=== PATIENT | male | born 2000 | race African-American/Black ===

== ENCOUNTER 2020-07-08 15:25 | Emergency (ER) | payer MEDICAID ==
[~2020-07-08] VITALS: Ht 175.3 cm; Wt 70.0 kg
--- NOTE | 2020-07-08 17:43 | PHYS DOC ---
General Adult EDM: Chief Complaint: ABDOMINAL PAIN HPI: HPI: Patient is a 19 year old male presents emergency department reporting that he has had urinary pressure with increased frequency and painful urination for the past 3 days. Patient states that he has seen some dried blood in his urine today and this is what prompted him to come to the emergency department. Patient denies any STI concerns or penile discharge, patient states that he has not had unprotected sex. Patient denies any back pain, denies abdominal pains, denies fever chills, rashes of his skin, patient denies any testicular pains. Patient denies any other physical symptoms or physical illnesses. Review of Systems: Review of Systems: 14 body systems of review of systems have been reviewed. See HPI for pertinent positives and negative responses, otherwise all other systems are negative, nonpertinent or noncontributory. Heart Score: Risk Factors: Risk Factors: DM, Current or recent (<one month) smoker, HTN, HLP, family history of CAD, obesity. Risk Scores: Score 0 - 3: 2.5% MACE over next 6 weeks - Discharge Home Score 4 - 6: 20.3% MACE over next 6 weeks - Admit for Clinical Observation Score 7 - 10: 72.7% MACE over next 6 weeks - Early Invasive Strategies Family History: Family History: Patient denies any family history stating his mother and father are healthy. Current Medications: Patient denies being on any prescription medications at home. Allergies: Allergies: Patient denies allergies to medications. Physical Exam: PE: Constitutional: Well developed, well nourished, no acute distress, non-toxic appearance. HENT: Normocephalic, atraumatic, bilateral external ears normal, oropharynx moist, no oral exudates, nose normal. Eyes: PERRLA, EOMI, conjunctiva normal, no discharge. Neck: Normal range of motion, no tenderness, supple, no stridor. Cardiovascular:Heart rate regular rhythm, no murmur Lungs & Thorax: Bilateral breath sounds clear to auscultation Abdomen: Bowel sounds normal, soft, no tenderness, no masses, no pulsatile masses. Skin: Warm, dry, no erythema, no rash. Back: No tenderness, no CVA tenderness. Extremities: No tenderness, no cyanosis, no clubbing, ROM intact, no edema. Neurologic: Alert and oriented X 3, normal motor function, normal sensory fu nction, no focal deficits noted. Psychologic: Affect normal, judgement normal, mood normal. : Circumcised male, no lesions or rashes noted in scrotum or groin area, no hernias appreciated. Current Patient Data: Labs: Laboratory Tests Test 07/08/20 17:45 Urine Collection Type Unknown Urine Color Ruth Ann Urine Clarity Cloudy Urine pH 6.0 Urine Specific Starks 1.020 Urine Protein 30 mg/dL Urine Glucose (UA) Negative mg/dL Urine Ketones (Stick) Trace mg/dL Urine Blood Large Urine Nitrite Negative Urine Bilirubin Negative Urine Urobilinogen Dipstick 1.0 mg/dL Urine Leukocyte Esterase Small Urine RBC Tntc /HPF Urine WBC 5-10 /HPF Urine Squamous Epithelial Cells None /LPF Urine Bacteria Few /HPF Urine Mucus Marked /LPF EKG: EKG: [] Radiology/Procedures: Radiology/Procedures: [] Course & Med Decision Making: Course & Med Decision Making Pertinent Labs and Imaging studies reviewed. (See chart for details) 19-year-old male, vitals stable, presents emergency department with UTI symptoms. Physical exam was unremarkable, a urine was ordered, patient's urine was infected, a GC chlamydia culture was also ordered and pending, discussed findings with patient will start on oral antibiotic for simple cystitis, patient aware that if GC chlamydia results come back positive he will be contacted and appropriate medications will be prescribed at that time. Patient gave verbal understanding of discharge home instructions, prescription instructions, return to ER concerns, patient had no further questions or concerns, patient discharged home without incident. Júnior Disclaimer: Júnior Disclaimer: This electronic medical record was generated, in whole or in part, using a voice recognition dictation system. Departure Departure Impression: Primary Impression: Cystitis Disposition: 01 DC HOME SELF CARE/HOMELESS Condition: IMPROVED Referrals: NO PCP (PCP) Patient Instructions: Urinary Tract Infection Additional Instructions: Please take prescription medicines as directed, return to the emergency department for worsening symptoms, if your GC/chlamydia cultures come back positive you will be contacted with the number you left with registration and the appropriate medications will be prescribed to you, see your doctor soon. If symptoms persist you should see your primary care physician for possible referral to urologist.. EMERGENCY DEPARTMENT GENERAL DISCHARGE INSTRUCTIONS Thank you for coming to Emergency Department (ED) today and trusting us with you care. We trust that you had a positive experience in our Emergency Department. If you wish to speak to the department management, you may call the Director at [phone]. YOUR FOLLOW UP INSTRUCTIONS ARE FOLLOWS: 1. Do you have a private Doctor? If you do not have a private doctor, please ask for a resource list of physicians or clinics that may be able to assist you with follow up care. 2. The Emergency Physicain has interpreted your x-rays. The X-Ray specialist will also review them. If there is a change in the findings, you will be notified in 48 hours when at all possible. 3. A lab test or culture has been done, your results will be reviewed and you will be notified if you need a change in treatment. ADDITIONAL INSTRUCTIONS AND INFORMATION: 1. Your care today has been supervised by a physician who is specially trained in emergency care. Many problems require more than one evaluation for a complete diagnosis and treatment. We recommend that you schedule your follow up appointment as recommended to ensure complete treatment of you illness or injury. If you are unable to obtain follow up care and continue to have a problem, or if your condition worsens, we recommend that you return to the ED. 2. We are not able to safely determine your condition over the phone nor are we able to give sound medical advice over the phone. For these safety reasons, if you call for medical advice we will ask you to come to the ED for further evaluation. 3. If you have any questions regarding these discharge instructions please call the ED at [phone]. SAFETY INFORMATION: In the interest of safety, wellness, and injury prevention; we encourage you to wear your sealbelt, if you smoke; quite smoking, and we encourage family to use a protective helmet for bicycling and other sporting events that present an increased risk for head injury. IF YOUR SYMPTOMS WORSEN OR NEW SYMPTOMS DEVELOP, OR YOU HAVE CONCERNS ABOUT YOUR CONDITION; OR IF YOUR CONDITION WORSENS WHILE YOU ARE WAITING FOR YOUR FOLLOW UP APPOINTMENT; EITHER CONTACT YOUR PRIMARY CARE DOCTOR, THE PHYSICIAN WHOSE NAME AND NUMBER YOU WERE GIVEN, OR RETURN TO THE ED IMMEDIATELY. Scripts Cephalexin (KEFLEX) 500 Mg Capsule 1 CAP PO QID for UTI for 10 Days, #40 CAP 0 Refills Prov: CAROL KANG APRN 07/08/20 CAROL KANG APRN Jul 08, 2020 17:43
[2020-07-08 18:10] LABS: BILIRUBIN,URINE NEGATIVE (NEG); CLARITY,URINE CLOUDY; COLOR,URINE AMBER; PROTEIN,URINE 30 mg/dL (NEG-TRACE)
[2020-07-08 18:11] LABS: NITRITE,URINE NEGATIVE (NEG); RBC,URINE TNTC /HPF (0-2)
[2020-07-08 18:12] LABS: BACTERIA,URINE FEW /HPF (0-FEW)
[2020-07-08 19:45] VITALS: BP 123/77
[2020-07-08] MEDS ORDERED: CEPH-264 PO (20:39)
[2020-07-08] MEDS ORDERED: CEPHALEXIN 250 MG CAPSULE. PO STA (20:40)
== END 2020-07-08 21:00 | disposition home or self-care (01) ==
LOC: ER 15:25
DX: N30.91 Cystitis, unspecified with hematuria (principal)
CPT/HCPCS: 81001; 87086; 87491; 87591; 99283